=== PATIENT | female | born 1980 | race Caucasian/White ===

== ENCOUNTER 2017-03-01 23:32 | Emergency (ER) | payer MEDICARE, OTHER | END 2017-03-02 00:36 | disposition home or self-care (01) | LOC: ER 23:32 | DX: J30.2 Other seasonal allergic rhinitis (principal); H92.02 Otalgia, left ear; H69.82 Other specified disorders of Eustachian tube, left ear; E78.5 Hyperlipidemia, unspecified; G89.29 Other chronic pain; I10 Essential (primary) hypertension; F17.210 Nicotine dependence, cigarettes, uncomplicated; Z79.891 Long term (current) use of opiate analgesic; Z79.899 Other long term (current) drug therapy; Z88.0 Allergy status to penicillin; Z88.2 Allergy status to sulfonamides; Z88.8 Allergy status to other drugs, medicaments and biological substances | CPT/HCPCS: 96360; 99283-25; J2930 ==